=== PATIENT | male | born 1960 | race Caucasian/White ===

== ENCOUNTER 2022-06-25 23:49 | Emergency (ER) | payer OTHER ==
[2022-06-26] MEDS ORDERED: Vancomycin 1 GM VIAL ONE (00:35)
[2022-06-26] MEDS ORDERED: cefTRIAXone (ROCEPHIN) 2 GM VIAL ONE (00:35)
[2022-06-26] MEDS ORDERED: Sodium Chloride 0.9% 100 ML ONE (00:36)
[2022-06-26] MEDS ORDERED: Mag-Al Plus 1200 MG/1200 MG/120 MG/30 ML UDCUP ONE (00:42)
[2022-06-26] MEDS ORDERED: Lidocaine Viscous Sol 2% 15 ml UD Cup ONE (00:42)
[2022-06-26] MEDS ORDERED: Famotidine 20 MG TAB ONE (00:46)
[2022-06-26 00:52] LABS: #Basophils 0.1 thou/uL (0.0-0.2); #Eosinphils 0.2 thou/uL (0.0-0.7); #Lymphocytes 3.9 thou/uL (1.20-3.40); #Monocytes 0.6 thou/uL (0.11-0.59); #Neutrophils 6.5 thou/uL (1.40-6.50); %Basophils 0.7 % (0.0-1.0); %Eosinophils 1.6 % (0.0-10.0); %Lymphocytes 34.2 % (21.0-51.0); %Monocytes 5.5 % (0.0-10.0); Hemoglobin 10.1 g/dL (14.0-18.0); Mean Corpuscular HGB CONC 32.6 g/dL (32.0-36.0); Mean Corpuscular Hemoglobin 27.8 pg (27.0-31.0); Mean Corpuscular Volume 85.2 fl (78.0-98.0); Mean Platelet Volume 5.3 fL (7.4-10.4); Platelet Count 440 10x3/uL (130-400); RBC Distribution Width 13.2 % (11.5-14.5); Red Blood Cell (RBC) Count 3.63 mill/uL (4.70-6.10); White Blood Cell (WBC) Count 11.3 10x3/uL (4.8-10.8)
[2022-06-26] MEDS ORDERED: HYDROcodone/Acetaminophen 10/325 mg Tablet ONE (00:59)
[2022-06-26 01:07] LABS: ALT (SGPT) 9 U/L (8-55); AST (SGOT) 8 U/L (5-34); Albumin 3.4 g/dL (3.5-5.0); Alkaline Phosphatase 70 U/L (40-110); Anion Gap 14 mmol/L (10-20); BUN (Urea Nitrogen) 12 mg/dL (8.4-25.7); Bilirubin, Total 0.2 mg/dL (0.2-1.2); Calc. Creatinine Clearance 0 mL/min (70-130); Calcium 8.7 mg/dL (7.8-10.44); Carbon Dioxide 24 mmol/L (22-29); Chloride 103 mmol/L (98-107); Estimated GFR 77; Globulin 3.4 g/dL (2.4-3.5); Glucose 162 mg/dL (70-105); Potassium 3.9 mmol/L (3.5-5.1); Protein, Total 6.8 g/dL (6.0-8.3); Sodium 137 mmol/L (136-145)
== END 2022-06-26 02:10 | disposition short-term general hospital (02) ==
LOC: BURERS 23:49
DX: S91.302A Unspecified open wound, left foot, initial encounter (principal); F15.10 Other stimulant abuse, uncomplicated; E11.621 Type 2 diabetes mellitus with foot ulcer; L97.529 Non-pressure chronic ulcer of other part of left foot with unspecified severity; F17.210 Nicotine dependence, cigarettes, uncomplicated; E11.40 Type 2 diabetes mellitus with diabetic neuropathy, unspecified; W25.XXXA Contact with sharp glass, initial encounter; Z79.899 Other long term (current) drug therapy
CPT/HCPCS: 36415; 36416; 80053; 83605; 85025; 86140; 87040; 96365; 96367; J0696; J3370; J3490